=== PATIENT | male | born 1950 | race American Indian/Alaskan Native ===

== ENCOUNTER 2017-10-07 13:58 | Outpatient (CLI) | payer OTHER | END 2017-10-07 14:45 | disposition home or self-care (01) | LOC: NUCLEAR 13:58 | DX: M81.0 Age-related osteoporosis without current pathological fracture (principal); Z13.820 Encounter for screening for osteoporosis ==

== ENCOUNTER 2017-10-07 15:13 | Outpatient (CLI) | payer OTHER | END 2017-10-07 15:19 | disposition home or self-care (01) | LOC: RAD 15:13 | DX: M25.552 Pain in left hip (principal) ==

== ENCOUNTER 2018-05-07 11:04 | Outpatient (CLI) | payer OTHER | END 2018-05-07 15:00 | disposition home or self-care (01) | LOC: MRI 11:04 | DX: M54.16 Radiculopathy, lumbar region (principal); M48.062 Spinal stenosis, lumbar region with neurogenic claudication ==

== ENCOUNTER 2018-09-20 14:13 | Outpatient (CLI) | payer OTHER | END 2018-09-20 14:21 | disposition home or self-care (01) | LOC: RAD 14:13 | DX: M54.12 Radiculopathy, cervical region (principal); M17.0 Bilateral primary osteoarthritis of knee; M16.12 Unilateral primary osteoarthritis, left hip ==

== ENCOUNTER → 2019-08-30 | Outpatient (CLI) | payer OTHER | END | disposition home or self-care (01) | LOC: RAD 09:50 | DX: S63.621A Sprain of interphalangeal joint of right thumb, initial encounter (principal) ==

== ENCOUNTER 2019-10-20 14:05 | Outpatient (CLI) | payer OTHER | END 2019-10-20 14:09 | disposition home or self-care (01) | LOC: RAD 14:05 | DX: M25.551 Pain in right hip (principal); M25.552 Pain in left hip ==

== ENCOUNTER 2020-03-06 10:20 | Outpatient (CLI) | payer OTHER | END 2020-03-06 10:22 | disposition home or self-care (01) | LOC: RAD 10:20 | PROVIDERS: ATTEND Otolaryngology | DX: R05 Cough (principal) ==

== ENCOUNTER 2020-03-30 13:19 | Outpatient (CLI) | payer OTHER | END 2020-03-30 13:25 | disposition home or self-care (01) | LOC: RAD 13:19 | PROVIDERS: ATTEND Physical Medicine & Rehabilitation | DX: M54.5 Low back pain (principal) ==

== ENCOUNTER 2020-10-01 08:44 | Outpatient (CLI) | payer OTHER | END 2020-10-01 08:47 | disposition home or self-care (01) | LOC: PPH VACUNA 08:44 | PROVIDERS: ATTEND Emergency Medicine Pediatric Emergency Medicine | DX: Z23 Encounter for immunization (principal) ==

== ENCOUNTER → 2020-10-22 | Outpatient (CLI) | payer OTHER | END | disposition home or self-care (01) | LOC: PPH VACUNA | PROVIDERS: ATTEND Emergency Medicine Pediatric Emergency Medicine | DX: Z23 Encounter for immunization (principal) ==

== ENCOUNTER → 2021-02-12 | Emergency (ER) | payer OTHER ==
[~2021-02-12] VITALS: Ht 172.7 cm; Wt 102.1 kg
[~2021-02-12] MED LIST: PLAVIX75 MG
== END | disposition home or self-care (01) ==
LOC: ER 15:14
DX: R41.0 Disorientation, unspecified (principal); R41.82 Altered mental status, unspecified

== ENCOUNTER 2021-05-02 08:09 | Outpatient (CLI) | payer OTHER | END 2021-05-02 08:11 | disposition home or self-care (01) | LOC: SONOGRAMA 08:09 | PROVIDERS: ATTEND Otolaryngology Otology & Neurotology | DX: K80.80 Other cholelithiasis without obstruction (principal) ==

== ENCOUNTER 2021-06-14 14:15 | Outpatient (CLI) | payer OTHER | END 2021-06-14 14:30 | disposition home or self-care (01) | LOC: PPH VACUNA 14:15 | PROVIDERS: ATTEND Emergency Medicine Pediatric Emergency Medicine | DX: Z23 Encounter for immunization (principal) ==

== ENCOUNTER 2021-11-11 15:12 | Outpatient (CLI) | payer OTHER | END 2021-11-11 15:22 | disposition home or self-care (01) | LOC: RAD 15:12 | PROVIDERS: ATTEND Plastic Surgery Surgery of the Hand | DX: M79.642 Pain in left hand (principal); M79.641 Pain in right hand ==

== ENCOUNTER → 2022-11-03 | Outpatient (CLI) | payer OTHER | END | disposition home or self-care (01) | LOC: RAD 12:05 | PROVIDERS: ATTEND Physical Medicine & Rehabilitation | DX: M54.59 Other low back pain (principal); M16.11 Unilateral primary osteoarthritis, right hip ==

== ENCOUNTER 2023-12-11 14:41 | Outpatient (CLI) | payer OTHER | END 2023-12-11 14:48 | disposition home or self-care (01) | LOC: RAD 14:41 | PROVIDERS: ATTEND Orthopaedic Surgery Adult Reconstructive Orthopaedic Surgery | DX: I11.9 Hypertensive heart disease without heart failure (principal) ==

== ENCOUNTER 2024-05-16 10:39 | Outpatient (CLI) | payer OTHER | END 2024-05-16 11:01 | disposition home or self-care (01) | LOC: RAD 10:39 | PROVIDERS: ATTEND Orthopaedic Surgery Adult Reconstructive Orthopaedic Surgery | DX: Z96.641 Presence of right artificial hip joint (principal) ==

== ENCOUNTER 2024-12-14 16:29 | Outpatient (CLI) | payer OTHER | END 2024-12-14 16:30 | disposition home or self-care (01) | LOC: RAD 16:29 | PROVIDERS: ATTEND Internal Medicine Pulmonary Disease | DX: R05.3 Chronic cough (principal) ==